=== PATIENT | male | born 1935 | race Caucasian/White ===

== ENCOUNTER → 2017-06-02 08:12 | Outpatient (POV) | payer MEDICARE, MEDICAID, SELFPAY | PROVIDERS: Family Provider Nurse Practitioner Family; Visit Provider Physician Assistant | DX: Z00.00 Encounter for general adult medical examination without abnormal findings (principal) ==

== ENCOUNTER → 2017-06-23 11:22 | Outpatient (CLI) | payer MEDICARE, MEDICAID, SELFPAY ==
[2017-06-23 11:41] LABS: Basophils # 0.1 K/mm3 (0-0.2); Basophils % 0.6 % (0.1-2.0); Eosinophils # 0.1 K/mm3 (0.0-0.4); Eosinophils % 1.3 % (0.1-12.0); Hematocrit 48.1 % (42.0-52.0); Hemoglobin 15.6 g/dL (14.1-18.0); Lymphocytes # 1.6 K/mm3 (0.7-4.5); Lymphocytes % 16.7 K/mm3 (10-50); Mean Corpuscular HGB Conc 32.4 g/dL (31.8-35.4); Mean Corpuscular Hemoglobin 29.3 pg (27.0-31.2); Mean Corpuscular Volume 90.6 fl (80-94); Mean Platelet Volume 8.1 fl (7.4-10.4); Monocytes # 0.8 K/mm3 (0.1-1.0); Monocytes % 7.9 % (1.7-9.3); Neutrophils # 7.2 K/mm3 (1.8-7.8); Neutrophils % 73.5 % (37.0-80.0); Platelet Count 149 K/mm3 (142-424); Red Blood Count 5.31 M/mm3 (4.60-6.20); Red Cell Distribution Width 12.9 % (11.5-17.5); White Blood Count 9.8 K/mm3 (4.8-10.8)
[2017-06-23 12:03] LABS: Alanine Aminotransferase 12 U/L (12-78); Albumin Level 3.7 gm/dL (3.4-5.0); Albumin/Globulin Ratio 1.1 (1.1-1.8); Alkaline Phosphatase 105 U/L (46-116); Anion Gap 9.9 mEq/L (5-15); Aspartate Amino Transferase 12 U/L (15-37); Bilirubin,Total 0.7 mg/dL (0.2-1.0); Blood Urea Nitrogen 10 mg/dL (7-18); Calcium 10.2 mg/dL (8.5-10.1); Carbon Dioxide 30 mmol/L (21.0-32.0); Chloride 104 mmol/L (98-107); Creatinine,Serum 1.19 mg/dL (0.70-1.30); Estimated Glomerular Filt Rate 59 ml/min (>60); GFR (African American) 71 ML/MIN (>60); Globulin 3.5 gm/dl (1.3-3.2); Glucose 95 mg/dL (74-106); Potassium 3.9 mmoL/L (3.5-5.1); Sodium 140 mmol/L (136-145); Thyroid Stimulating Hormone 1.52 uIU/ml (0.358-3.740); Total Protein,Serum 7.2 gm/dL (6.4-8.2)
[2017-06-24 08:28] LABS: Hematocrit 45.5 % (37.5-51.0)
[2017-06-24 15:06] LABS: Vitamin B12 394 pg/mL (232-1245)
[2017-06-24 16:29] LABS: Folate, Hemolysate 367.4 ng/mL (Not Estab.)
[2017-06-26 15:49] LABS: Folate, RBC 807 ng/mL (>498)
[2017-06-26 15:55] LABS: Vitamin B1 132.7 nmol/L (66.5-200.0)
== END ==
PROVIDERS: Visit Provider Specialist
DX: R41.3 Other amnesia (principal)
CPT/HCPCS: 36415; 80053; 82607; 84425; 84443; 85025

== ENCOUNTER → 2017-07-04 13:31 | Outpatient (CLI) | payer MEDICARE, MEDICAID, SELFPAY ==
--- NOTE | 2017-07-04 13:33 | CT_ITS ---
CT head/brain wo con COMPARISON: CT scan of brain without and with contrast 01/31/2015 HISTORY: Memory loss, known Alzheimer's disease, headaches TECHNIQUE: Multiaxial scans obtained from base skull to the vertex and were performed without IV contrast. FINDINGS: The base of skull appears normal, the mastoids are clear. The basilar cisterns are prominent. There is mild diffuse ventriculomegaly. The temporal horns of the lateral ventricles are prominent, a finding more commonly seen in Alzheimer's disease. There is no bleed. There are Ventricular hypodensities consistent with chronic ischemic white matter changes. The sylvian fissures and cortical sulci are prominent. The bony calvarium appears intact. There are no extra-axial fluid collections. IMPRESSION: Findings of prominent cortical atrophy and moderate chronic ischemic white matter changes, no acute intracranial pathology.
== END ==
PROVIDERS: Family Provider Nurse Practitioner Family; PCP Internal Medicine Adolescent Medicine; Visit Provider Specialist
DX: R41.3 Other amnesia (principal)
CPT/HCPCS: 70450

== ENCOUNTER → 2018-03-16 11:43 | Outpatient (CLI) | payer MEDICARE, MEDICAID, SELFPAY ==
--- NOTE | 2018-03-16 11:55 | XR_ITS ---
XR chest 2V HISTORY: No history provided ORDERING PHYSICIAN: Katrina Ovalle PATIENT AGE: 82 years COMPARISON: PA and lateral chest 06/25/2017 FINDINGS: The lung silvestre are well expanded. Overall cardiac size is normal. There is focal silhouetting of the right heart border and the right infrahilar region with increased attenuation in the right middle lobe seen on the lateral projection. Otherwise lung silvestre are clear. Is no pleural fluid. There is generalized osteopenia the thoracic spine. IMPRESSION: Probable right middle lobe pneumonia and suggest follow-up films to assess complete clearing as endobronchial lesion is a consideration as well
[2018-03-16 12:05] LABS: Basophils # 0.1 K/mm3 (0-0.2); Basophils % 0.8 % (0.1-2.0); Eosinophils # 0.1 K/mm3 (0.0-0.4); Eosinophils % 1.6 % (0.1-12.0); Hematocrit 45.4 % (42.0-52.0); Hemoglobin 14.2 g/dL (14.1-18.0); Lymphocytes # 1.5 K/mm3 (0.7-4.5); Lymphocytes % 22.6 % (10-50); Mean Corpuscular HGB Conc 31.4 g/dL (31.8-35.4); Mean Corpuscular Hemoglobin 29.7 pg (27.0-31.2); Mean Corpuscular Volume 94.6 fl (80-94); Mean Platelet Volume 7.7 fl (7.4-10.4); Monocytes # 0.6 K/mm3 (0.1-1.0); Monocytes % 8.5 % (1.7-9.3); Neutrophils # 4.4 K/mm3 (1.8-7.8); Neutrophils % 66.4 % (37.0-80.0); Platelet Count 148 K/mm3 (142-424); Red Blood Count 4.79 M/mm3 (4.60-6.20); Red Cell Distribution Width 13.3 % (11.5-17.5); White Blood Count 6.6 K/mm3 (4.8-10.8)
[2018-03-16 13:07] LABS: Alanine Aminotransferase 18 U/L (12-78); Albumin Level 3.3 gm/dL (3.4-5.0); Albumin/Globulin Ratio 0.9 (1.1-1.8); Alkaline Phosphatase 85 U/L (46-116); Anion Gap 11.2 mEq/L (5-15); Aspartate Amino Transferase 12 U/L (15-37); Bilirubin,Total 0.5 mg/dL (0.2-1.0); Blood Urea Nitrogen 15 mg/dL (7-18); Calcium 10.4 mg/dL (8.5-10.1); Carbon Dioxide 30 mmol/L (21.0-32.0); Chloride 104 mmol/L (98-107); Creatinine,Serum 1.13 mg/dL (0.70-1.30); Estimated Glomerular Filt Rate 62 ml/min (>60); GFR (African American) 75 ML/MIN (>60); Globulin 3.5 gm/dl (1.3-3.2); Glucose 122 mg/dL (74-106); Potassium 4.2 mmoL/L (3.5-5.1); Sodium 141 mmol/L (136-145); Total Protein,Serum 6.8 gm/dL (6.4-8.2)
== END ==
PROVIDERS: Visit Provider Nurse Practitioner Family
DX: R50.9 Fever, unspecified (principal)
CPT/HCPCS: 36415; 71046; 80053; 85025

== ENCOUNTER → 2018-04-04 11:02 | Outpatient (CLI) | payer MEDICARE, MEDICAID, SELFPAY ==
--- NOTE | 2018-04-04 11:08 | XR_ITS ---
XR chest 2V HISTORY: ITS.REASON: COUGH ORDERING PHYSICIAN: Katrina Ovalle PATIENT AGE: 82 years COMPARISON: PA and lateral chest 06/25/2017 FINDINGS: The cardiomediastinal silhouette and pulmonary vascularity are within normal limits. The lungs are well expanded. There is ill-defined opacity in the right infrahilar region and right middle lobe suggestive of a minimal pneumonic infiltrate. The remainder of the lung silvestre are clear. There is no pleural fluid. No acute bony abnormalities. There is a stable mild compression fracture of L1. IMPRESSION: Minimal right middle lobe pneumonia versus atelectasis
== END ==
PROVIDERS: PCP Nurse Practitioner Family; Visit Provider Nurse Practitioner Family
DX: R05 Cough (principal)
CPT/HCPCS: 71046

== ENCOUNTER → 2018-12-03 09:20 | Outpatient (CLI) | payer MEDICARE, MEDICAID, SELFPAY ==
--- NOTE | 2018-12-03 09:25 | CA_ITS ---
APPROVED REPORT EXAM: Comprehensive 2D, Doppler, and color-flow Echocardiogram Manager Loss Prevention: Mavis Meehan RT(R) Ht: 6 ft 0 in Wt: 143lbs BSA: 1.85 BP: 148/81 mmHg Indications: Pre-Op Clearance, CAD, Hyperlipidemia, Hypertension/HDD, smoker, possible AAA repair, PAD, GERD, cardiac stents, Alzheimers. 2D Dimensions IVSd 0.90 cm M: 0.6-1.2 LVEF (Visual) 57.70 % PWd 1.10 cm M: 0.6 - 1.2 LVDd 3.70 cm M: 4.2 - 5.9 LVDs 2.60 cm M: 2.5 - 4.0 LVOT 2.00 cm (M/F) 1.5-2.5 M-Mode Dimensions LA Diam 4.20 cm (1.9-4.0) Ao Diam 2.50 cm (2.0-3.7) AV Cusp 2.10 cm (1.5-2.6) LV Diastology E/A Ratio 0.6 MED E' 4.68 (< 7 cm/sec) E'/MED E' Ratio 12.40 (>14) LAT E' 6.82 (<10 cm/sec) E/LAT E' Ratio 8.50 (>14) Mitral Valve MV E Max Jose De Jesus. 57.80 (40-130 cm/s) MV A Velocity 103.00 (40-130 cm/s) E/A Ratio 0.60 Tricuspid Valve TR P. Velocity 258.00 cm/s RAP Estimate 15.00 mmHg RVSP 42.00 mmHg Left Ventricle Left atrium is mildly enlarged, left ventricle is normal size, mild concentric left ventricular hypertrophy, visually estimated ejection fraction 55% with no regional wall motion abnormality. Grade 1 diastolic dysfunction seen without tissue Doppler evidence of raise left atrial pressure. Right Ventricle Right atrium and right ventricle mildly enlarged with normal contractility. Aortic Valve Aortic valve is minimally thickened and fibrosed, there is no aortic stenosis, or aortic insufficiency. Mitral Valve Mitral valve is grossly normal, there is mild mitral regurgitation. Tricuspid Valve Tricuspid valve is grossly normal, there is mild tricuspid regurgitation, calculated right ventricular systolic pressure is 44 mmHg consistent with moderate elevated right ventricular systolic pressure. Pulmonic Valve Pulmonic valve is poorly visualized. Great Vessels Aortic root is normal size. Pericardium No significant pericardial effusion noted. Conclusion 1. Mild biatrial enlargement, normal left ventricular size, mild concentric left ventricular hypertrophy, visually estimated ejection fraction 55% with no regional wall motion abnormality. Grade 1 diastolic dysfunction seen without tissue Doppler evidence of raise left atrial pressure. 2. Mildly enlarged right ventricle with normal contractility. 3. Mild mitral and tricuspid regurgitation, calculated right ventricular systolic pressure is 44 mmHg consistent with moderately elevated right ventricular systolic pressure. 4. No significant pericardial effusion noted. Electronically signed by : Bryan Clark, 12/04/2018 15:37:12
== END ==
PROVIDERS: PCP Nurse Practitioner Family; Visit Provider Internal Medicine Cardiovascular Disease
DX: E78.5 Hyperlipidemia, unspecified (principal); I10 Essential (primary) hypertension; I25.10 Atherosclerotic heart disease of native coronary artery without angina pectoris; I71.4 Abdominal aortic aneurysm, without rupture; I73.9 Peripheral vascular disease, unspecified; R10.9 Unspecified abdominal pain
CPT/HCPCS: 93306

== ENCOUNTER → 2018-12-07 16:10 | Outpatient (CLI) | payer MEDICARE, MEDICAID, SELFPAY ==
[2018-12-07 16:35] LABS: Basophils # 0.1 K/mm3 (0-0.2); Basophils % 0.9 % (0.1-2.0); Eosinophils # 0.2 K/mm3 (0.0-0.4); Eosinophils % 2.7 % (0.1-12.0); Hematocrit 45.6 % (42.0-52.0); Hemoglobin 14.5 g/dL (14.1-18.0); Lymphocytes % 28.1 % (10-50); Mean Corpuscular HGB Conc 31.8 g/dL (31.8-35.4); Mean Corpuscular Hemoglobin 29.4 pg (27.0-31.2); Mean Corpuscular Volume 92.4 fl (80-94); Mean Platelet Volume 7.2 fl (7.4-10.4); Monocytes # 0.5 K/mm3 (0.1-1.0); Neutrophils # 4.3 K/mm3 (1.8-7.8); Neutrophils % 61.2 % (37.0-80.0); Platelet Count 181 K/mm3 (142-424); Red Blood Count 4.93 M/mm3 (4.60-6.20); Red Cell Distribution Width 13.4 % (11.5-17.5)
[2018-12-07 17:28] LABS: Anion Gap 11.6 mEq/L (5-15); Blood Urea Nitrogen 12 mg/dL (7-18); Calcium 10.4 mg/dL (8.5-10.1); Carbon Dioxide 30 mmol/L (21.0-32.0); Chloride 103 mmol/L (98-107); Creatinine,Serum 1.13 mg/dL (0.70-1.30); Estimated Glomerular Filt Rate 62 ml/min (>60); Free T4 (Free Thyroxine) 0.87 ng/dl (0.76-1.46); GFR (African American) 75 ML/MIN (>60); Glucose 93 mg/dL (74-106); Potassium 4.6 mmoL/L (3.5-5.1); Sodium 140 mmol/L (136-145); Thyroid Stimulating Hormone 1.16 uIU/ml (0.358-3.740)
[2018-12-09 10:49] LABS: Vitamin B12 415 pg/mL (232-1245)
== END ==
PROVIDERS: Visit Provider Nurse Practitioner Family
DX: N17.9 Acute kidney failure, unspecified (principal); F02.81 Dementia in other diseases classified elsewhere, unspecified severity, with behavioral disturbance; Z79.899 Other long term (current) drug therapy
CPT/HCPCS: 36415; 80048; 82607; 84439; 84443; 85025

== ENCOUNTER → 2019-01-19 13:25 | Outpatient (CLI) | payer MEDICARE, MEDICAID, SELFPAY ==
[2019-01-19 16:35] LABS: Anion Gap 9.1 mEq/L (5-15); Blood Urea Nitrogen 11 mg/dL (7-18); Calcium 10.3 mg/dL (8.5-10.1); Carbon Dioxide 32 mmol/L (21.0-32.0); Chloride 104 mmol/L (98-107); Creatinine,Serum 1.16 mg/dL (0.70-1.30); Estimated Glomerular Filt Rate 60 ml/min (>60); GFR (African American) 73 ML/MIN (>60); Glucose 127 mg/dL (74-106); Potassium 4.1 mmoL/L (3.5-5.1); Sodium 141 mmol/L (136-145)
== END ==
PROVIDERS: Urology; Visit Provider Internal Medicine
DX: E78.5 Hyperlipidemia, unspecified (principal); I10 Essential (primary) hypertension; I25.10 Atherosclerotic heart disease of native coronary artery without angina pectoris; I27.20 Pulmonary hypertension, unspecified; I71.4 Abdominal aortic aneurysm, without rupture; I73.9 Peripheral vascular disease, unspecified
CPT/HCPCS: 36415; 80048